=== PATIENT | female | born 1990 | race African-American/Black ===

== ENCOUNTER 2018-10-05 09:08 | Emergency (ER) | payer SELFPAY ==
[2018-10-05] MEDS: DIPHTH/TET/ACEL PERTUSS (ADULT) 0.5 ML VIAL IM* (10:22)
== END 2018-10-05 10:27 | disposition home or self-care (01) ==
LOC: FTE 09:08
DX: S61.412A Laceration without foreign body of left hand, initial encounter (principal); W26.0XXA Contact with knife, initial encounter; Y92.9 Unspecified place or not applicable; Z23 Encounter for immunization
CPT/HCPCS: 12001; 90471; 90715; 99283-25